=== PATIENT | male | born 1950 | race African-American/Black ===

== ENCOUNTER → 2016-11-07 | Outpatient (CLI) | payer MEDICARE, BC ==
--- NOTE | 2016-11-12 11:53 | P.ARTDOP ---
Arterial Doppler LOWER EXTREMITY ARTERIAL DOPPLER: DATE OF SERVICE: 11/07/2016 Reason for study: Suspected PVD. Doppler waveforms: Multiphasic bilaterally throughout. Pulse volume recording: Progressive wanting as 1 passes distally. Pressure gradients: Mild gradients above low thigh. Moderate gradients across the knee.. Ankle-brachial indices: 0.66 on the right and 0.56 on the left. Toe pressures: 70 to on the right, 86 on the left Impression: Moderate bilateral fem-pop disease. Tissue perfusion appears adequate for healing..
== END | disposition home or self-care (01) ==
LOC: RADUSWWP 12:48
PROVIDERS: ATTEND Internal Medicine
DX: I73.9 Peripheral vascular disease, unspecified (principal)
CPT/HCPCS: 93923

== ENCOUNTER → 2017-01-30 | Outpatient (CLI) | payer MEDICARE, BC ==
--- NOTE | 2017-01-30 14:27 | CTL ---
EXAMINATION TYPE: CT Low Dose Lung DATE OF EXAM ORDERED: 01/30/2017 12:00 PM HISTORY: 66 year-old male history of tobacco use and colon cancer, lung cancer screening CT DLP: 102.[address] CTDI: 3.6 mGy Automated exposure control for dose reduction was used. SCREENING VISIT: Baseline COMPARISON: None TECHNIQUE: Low dose computed tomography scan was performed through the chest at 1 mm thick sections and reconstructed images in the coronal plane at [address] DIAGNOSTIC QUALITY: Satisfactory FINDINGS: The heart is normal size without pericardial effusion. Coronary vessel calcifications are present and are a marker for coronary artery disease. Aorta is normal caliber with conventional arch vessel branching anatomy. Scattered nonenlarged mediastinal lymph nodes. Moderate bilateral gynecomastia incidentally noted. Evaluation of the lungs shows mild diffuse bronchial wall thickening. 5 mm peripheral right upper lobe pulmonary nodule axial image 44. 6 mm pulmonary nodule along the minor fissure, axial image 114. 5 mm inferior lingular pulmonary nodule axial image 136. There are reticular densities with patchy groundglass within the mid to lower lungs. No karen consolidation or pleural effusion. Tiny hiatal hernia. Bones: Endplate spondylosis mid to lower thoracic spine. IMPRESSION: 1. LungRADS 3 - probably benign; a few pulmonary nodules measuring up to 6 mm on baseline. 2. Patchy groundglass in the mid to lower lungs with some reticulations. Correlate for possible interstitial pneumonitis such as NSIP or DIP. 3. Tiny hiatal hernia. RECOMMENDATION: 1. Six-month follow-up low-dose CT chest to reassess the pulmonary nodules. 2. Smoking cessation. 3. Clinical management of any possible pneumonitis. CT LUNG RAD: Lung-Rad 3 Probably Benign MTDD
== END | disposition home or self-care (01) ==
LOC: RADCTMAIN 10:47
PROVIDERS: ATTEND Internal Medicine
DX: Z12.2 Encounter for screening for malignant neoplasm of respiratory organs (principal); F17.200 Nicotine dependence, unspecified, uncomplicated; R91.8 Other nonspecific abnormal finding of lung field

== ENCOUNTER → 2017-01-31 | Outpatient (CLI) | payer MEDICARE, BC ==
[2017-01-31 11:29] LABS: Basophils # (A) 0.1 k/uL (0-0.2); Basophils % (A) 1 %; CH 30.6; CHCM 34.8; Eosinophils # (A) 0.3 k/uL (0-0.7); Eosinophils % (A) 3 %; HCT 45.7 % (39.0-53.0); HDW 2.37; Luc # (Auto) 0.24; Luc % (Auto) 3; Lymphocytes # (A) 2.2 k/uL (1.0-4.8); Lymphocytes % (A) 23 %; MCH 30.9 pg (25.0-35.0); MCV 88.2 fL (80.0-100.0); Mean Platelet Volume 6.9; Monocytes # (A) 0.6 k/uL (0-1.0); Monocytes % (A) 7 %; Neutrophils % (A) 64 %; RBC 5.17 m/uL (4.30-5.90); RDW 13.4 % (11.5-15.5); WBC 9.4 k/uL (3.8-10.6); WBC (Perox) 8.87
[2017-01-31 11:51] LABS: ALT 42 U/L (21-72); AST 28 U/L (17-59); Alkaline Phosphatase 84 U/L (38-126); Anion Gap 10 mmol/L; Blood Urea Nitrogen 13 mg/dL (9-20); Calcium 9.7 mg/dL (8.4-10.2); Carbon Dioxide 28 mmol/L (22-30); Chloride 105 mmol/L (98-107); Cholesterol 200 mg/dL (<200); Creatine Kinase 522 U/L (55-170); Glucose 99 mg/dL (74-99); HDL Cholesterol 49 mg/dL (40-60); Non-African American GFR(MDRD) >60 (>60 ml/min/1.73 sqM); Potassium 4.4 mmol/L (3.5-5.1); Sodium 143 mmol/L (137-145); Total Bilirubin 0.6 mg/dL (0.2-1.3); Total Protein 7.7 g/dL (6.3-8.2); Triglycerides 173 mg/dL (<150); Uric Acid 6.4 mg/dL (3.5-8.5)
[2017-01-31 12:20] LABS: Prostate Specific Antigen 0.95 ng/mL (0.00-4.00)
[2017-01-31 15:45] LABS: Hemoglobin A1C 10.2 % (4.2-6.1)
== END | disposition home or self-care (01) ==
LOC: LABWHC1 10:37
PROVIDERS: ATTEND Internal Medicine
DX: Z00.00 Encounter for general adult medical examination without abnormal findings (principal); I42.9 Cardiomyopathy, unspecified; I10 Essential (primary) hypertension; E78.00 Pure hypercholesterolemia, unspecified; E11.69 Type 2 diabetes mellitus with other specified complication; N40.0 Benign prostatic hyperplasia without lower urinary tract symptoms
CPT/HCPCS: 36415; 80053; 80061; 82306; 82550; 83036; 84153; 84439; 84443; 84550; 85025